=== PATIENT | male | born 1950 | race Caucasian/White ===

== ENCOUNTER → 2018-08-06 | Outpatient (CLI) | payer OTHER, MEDICARE ==
[~2018-08-06] MED LIST: ASPIR 8181 MG PO; CARDURA4 MG PO; COLACE100 MG PO; CYMBALTA60 MG PO; LIPITOR80 MG PO; OMEPRAZOLE 20 M20 M1 PO; OXYCODONE HCL 55 MG PO; PERCOCET PO; PHENERGAN 25 MG25 M1 PO; TESTONE CI200 MG/1 M IM; TOPROL XL25 MG PO; UNICOMPLEX M TA1 TA1 PO; VITAMIN D31000 UNIT PO; WELLBUTRIN XL300 MG PO; XANAX1 MG PO; XARELTO10 MG PO
--- NOTE | 2018-08-06 16:23 | CARDNUC ---
[place] [address] CARDIAC NUCLEAR IMAGING REPORT Name: JOSEPH WATKINS JR Room: [facility]#: [id number] Admission: 08/06/18 Attend Phys: Mitch Beyer MD Discharge: Date of : 48 Date of Service: 08/06/18 1623 Report #: [id number] THIS REPORT FOR: //name// APPROVED REPORT Study performed: 08/06/2018 09:51:30 Exam: Nuclear Stress Test Indication: Fatigue, Bradycardia, Carotid Stenosis-Bilateral. Patient Location: Out-Patient Stress Tech: Marika Marc Stress Nurse: Pati Casarez RN Ht: 5 ft 7 in Wt: 179 lbs BSA: 1.93 m2 BMI: 28.03 Medical History Medical History: Angina, CAD s/p CABG, CAD s/p FL, CAD s/p stent, Carotid artery disease, Fatigue, HTN, Hyperlipidemia, RBBB, Smoking, Weakness. Medications: ASA 81 Mg, Atorvastatin, Cardura, metoprolol Allergies: Morphine Cardiac Risk Factors: Age, Current Smoker, FHX of CAD, HTN, Hyperlipidemia, Carotid Stenosis. Previous Cardiac Procedures: CABG, PCI, Myocardial infarction Pretest Chest Pain Characteristics: No chest pain Exercise History: Sedentary Physical Disabilities: HX back and hip surgery with pain. Meds Held ( hrs): Metoprolol Stress Test Details Stress Test: Pharmacologic stress testing performed using 0.4 mg of regadenoson per 5 mL given IV over 10 seconds. Reason for pharmacologic stress test: physical limitation, post surgery on hips and back.. HR Resting HR: 63 bpm Max Heart Rate (APMHR): 151 bpm Max HR Achieved: 103 bpm Target HR (85% APMHR): 128 bpm % of APMHR: 68 Recovery HR: 79 bpm HR response to stress: Normal HR response to stress BP Resting BP: 133/74 mmHg Max BP: 116/[place] [address] CARDIAC NUCLEAR IMAGING REPORT Name: JOSEPH WATKINS JR Room: [facility]#: [id number] Admission: 08/06/18 Attend Phys: Mitch Beyer MD Discharge: Date of : 48 Date of Service: 08/06/18 1623 Report #: [id number] BP response to stress: Normal blood pressure response to stress. ECG Resting ECG: nsr irbbb Stress ECG: nsr irbbb ST Change: none Arrhythmia: none Recovery ECG: nsr Recovery ST Change: none Recovery Arrhythmia: none Clinical Reason for Termination: Completed protocol Stress Symptoms: Generalized heaviness all over body Exercise duration: 0 min 0 sec Exercise capacity: 1.00 METs Nurse Comments 68 year old male presented with HX of CABG, FL, PCI, Carotid Stenosis, increased fatigue and bradycardia. Due to back and hip surgeries, patient performed a sitting Lexiscan well. Recovery unremarkable with PO caffeine. Patient was escorted by staff to Nuclear Medicine for images. Patient was stable with no complaints at that time. Stress ECG Conclusion negative for ischemia NM EXAM: Myocardial Perfusion REST/STRESS Study Quality Study: Fair Artifact: Moderate Increased GI uptakeMotion artifact Lung Uptake: Normal Study Data At rest, the left ventricular ejection fraction was 52%.. Post stress, the left ventricular ejection was 59%.. SSS: 6 SRS: 8 SDS: -2 TID = 0.98. Perfusion Review of SPECT images at rest and stress show a relatively uniform uptake of tracer in all segments, [place] [address] CARDIAC NUCLEAR IMAGING REPORT Name: JOSEPH WATKINS JR Room: [facility]#: [id number] Admission: 08/06/18 Attend Phys: Mitch Beyer MD Discharge: Date of : 48 Date of Service: 08/06/18 1623 Report #: [id number] is severe , extra cardiac uptake adjacent to inferior wall, decreasing sensitivity in this region, but the the stress prone images show a partial normalization of perfusion in the inferior segment. Images were reviewed using Apparity. Wall Motion normal all segments Nuclear Conclusion ECG Findings: negative for ischemia Clinical Findings: negative for ischemia Nuclear Findings: negative for ischemia Exercise Capacity: not assessed Left Ventricular Function: normal Risk Study: low Negative perfusion nuclear stress test for ischemia. The inferior defect is likely artifact. Low risk study. <Conclusion> negative for ischemia <ELECTRONICALLY SIGNED> By: Alonso Ledesma MD, [facility] 08/06/18 1623 1623 1623 Alonso Ledesma MD, FACC /INF
== END ==
LOC: M.NUC 06-30 16:51
DX: I25.10 Atherosclerotic heart disease of native coronary artery without angina pectoris (principal); I65.23 Occlusion and stenosis of bilateral carotid arteries; I10 Essential (primary) hypertension; E78.5 Hyperlipidemia, unspecified; F17.200 Nicotine dependence, unspecified, uncomplicated; Z88.5 Allergy status to narcotic agent; Z95.1 Presence of aortocoronary bypass graft; Z79.899 Other long term (current) drug therapy; Z82.49 Family history of ischemic heart disease and other diseases of the circulatory system

== ENCOUNTER → 2021-03-15 | Outpatient (CLI) | payer MEDICARE, OTHER ==
[2021-03-15 10:01] LABS: CREATININE 1.4 mg/dL (0.6-1.3)
== END ==
LOC: M.LAB 09:36 → M.CT 11:00
PROVIDERS: ATTEND Surgery Vascular Surgery
DX: K44.9 Diaphragmatic hernia without obstruction or gangrene (principal); I70.8 Atherosclerosis of other arteries; I70.0 Atherosclerosis of aorta; I73.9 Peripheral vascular disease, unspecified; M47.816 Spondylosis without myelopathy or radiculopathy, lumbar region

== ENCOUNTER → 2021-04-07 | Outpatient (CLI) | payer MEDICARE, OTHER ==
[~2021-04-07] VITALS: Ht 175.3 cm; Wt 77.1 kg
[2021-04-07] VITALS (9 sets, daily range): BP systolic 132–195; BP diastolic 68–803
[~2021-04-07] MED LIST changes: +CELEBREX 200 M200 M1 PO; +KAPSPARGO SPRIN25 MG PO; +PROAIR HFA8.5 GM INH; +TYLENOL325 MG PO; +VITAMIN D3 COM1 EACH PO
[2021-04-07 10:06] LABS: HEMATOCRIT 40.1 % (42.0-52.0); HEMOGLOBIN 13.6 gm/dL (14.0-18.0); MCH 30.4 pg (26.0-34.0); MCHC 33.9 g/dL (28.0-37.0); MCV 89.5 fL (80.0-100.0); MPV 8.2 fl. (7.2-11.1); RBC 4.48 mil/uL (4.50-6.00); RDW-CV 13.8 % (10.5-14.5); WBC 8.4 thou/uL (4.0-11.0)
[2021-04-07 10:16] LABS: CALCIUM 8.7 mg/dL (8.5-10.1); CREATININE 1.4 mg/dL (0.6-1.3); POTASSIUM 3.5 mmol/L (3.5-5.1)
[2021-04-07 10:18] LABS: APTT 27.7 Seconds (25.0-31.3); PROTIME 10.4 Seconds (9.20-11.50)
[2021-04-07 10:20] LABS: ALBUMIN 3.3 g/dL (3.4-5.0); TOTAL BILIRUBIN 0.4 mg/dL (<0.1-1.0); TOTAL PROTEIN 7.2 g/dL (6.4-8.2)
== END | disposition home or self-care (01) ==
LOC: M.LAB 09:19 → M.INT 09:19
PROVIDERS: ATTEND Radiology Diagnostic Radiology
DX: I70.213 Atherosclerosis of native arteries of extremities with intermittent claudication, bilateral legs (principal); M79.604 Pain in right leg; M79.605 Pain in left leg; Z98.890 Other specified postprocedural states; Z79.899 Other long term (current) drug therapy; Z20.822 Contact with and (suspected) exposure to COVID-19; Z95.1 Presence of aortocoronary bypass graft; Z85.89 Personal history of malignant neoplasm of other organs and systems